=== PATIENT | female | born 1980 | race Caucasian/White ===

== ENCOUNTER 2017-04-05 19:16 | Inpatient (IN) | payer BC ==
[2017-04-05] MEDS ORDERED: ceFAZolin 2 GM in SODIUM CHLORIDE 0.9% 100 ML IVPB ONE (19:54)
[2017-04-05] MEDS ORDERED: CITRIC ACID-SODIUM CITRATE 15 ML CUP PO ONE (19:54)
[2017-04-05] MEDS ORDERED: LACTATED RINGERS 1,000 ML IV ONE (19:54)
--- NOTE | 2017-04-05 20:02 | P.HPOB ---
History of Present Illness H&P Date: 04/05/17 Chief Complaint: 39-5/7 weeks, previous section, labor The patient is a 36-year-old 2 para 1001 admitted at 39-5/7 weeks as established by last menstrual period and confirmed by 20 week ultrasound. She is admitted in early active labor with her cervix dilated to 5 cm. She has a history of previous section and has requested repeat section. She did fall into the category of advanced maternal age and declined genetic testing. Her has otherwise been uncomplicated and group B strep status is negative. Obstetrical history 2 para 1001 with 1 term section. Current statistics are listed in history of present illness. EDC of 2016 was established by last menstrual period and confirmed by 20 week ultrasound. Laboratory workup demonstrates a blood type of O+ with a negative antibody screen. Rubella status is nonimmune. All other laboratory workup was within normal limits. Early Glucola as well as second trimester Glucola were within normal limits. Group B strep status is negative. Gynecologic history is unremarkable with no history of any infections to include STDs. Review of Systems View of systems is confined to history of present illness. Past Medical History Past Medical History: No Reported History Additional Past Medical History / Comment(s): 1998 leep procedure done. History of Any Multi-Drug Resistant Organisms: None Reported Past Surgical History: No Surgical Hx Reported Past Psychological History: No Psychological Hx Reported Smoking Status: Never smoker Past Alcohol Use History: None Reported Past Drug Use History: None Reported - Past Family History Sister(s) Family Medical History: No Reported History Medications and Allergies Home Medications Medication Instructions Recorded Confirmed Type Vit No.124/Iron/FA 1 each PO DAILY 05/20/15 04/05/17 History [ Vitamin Tablet] Allergies Allergy/AdvReac Type Severity Reaction Status Date / Time No Known Allergies Allergy Verified 04/05/17 19:56 Exam - Vital Signs Vital signs: Intake and Output 04/05/17 04/05/17 04/05/17 06:59 14:59 22:59 Other: Weight 93.44 kg Patient Weight 04/06/17 06:59 Weight 93.44 kg In general, this is a well-developed, well-nourished white female in no significant distress. Her heart has a regular rhythm and rate without murmur. Her lungs are clear to auscultation bilaterally in all naqvi. Her abdomen is gravid, nondistended, has normal active bowel sounds, is soft, nontender, and without any palpable masses aside from uterine fundus. Her extremities are without any cyanosis, clubbing, or significant edema and are nontender to palpation bilaterally. Digital cervical examination performed by the nursing staff demonstrates her cervix to be 5 cm dilated. Assessment and Plan (1) Previous section Status: Acute (2) Advanced maternal age (AMA) in Status: Acute (3) Active labor at term Status: Acute Plan: She is admitted for active management of labor. As she has requested repeat section, she will be taken to the operating room shortly for the procedure to be carried out. Risks and complications have been discussed and she has understood and agreed to proceed.
[2017-04-05 20:12] VITALS: BMI 37.6
[2017-04-05 20:23] LABS: Basophils # (A) 0.1 k/uL (0-0.2); Basophils % (A) 1 %; CHCM 36.1; Eosinophils # (A) 0.1 k/uL (0-0.7); Eosinophils % (A) 1 %; HCT 40.3 % (34.0-46.0); HDW 3.19; HGB 13.9 gm/dL (11.4-16.0); Luc # (Auto) 0.42; Luc % (Auto) 4; Lymphocytes # (A) 1.5 k/uL (1.0-4.8); Lymphocytes % (A) 15 %; MCH 31.8 pg (25.0-35.0); MCHC 34.5 g/dL (31.0-37.0); MCV 92.1 fL (80.0-100.0); Mean Platelet Volume 9.4; Monocytes # (A) 0.5 k/uL (0-1.0); Monocytes % (A) 5 %; Neutrophils # (A) 7.2 k/uL (1.3-7.7); Neutrophils % (A) 75 %; RBC 4.37 m/uL (3.80-5.40); RDW 14.3 % (11.5-15.5); WBC 9.6 k/uL (3.8-10.6); WBC (Perox) 10.06
[2017-04-05] MEDS ORDERED: KETOROLAC 30 MG/ML 1 ML VIAL ONE (20:35)
[2017-04-05] MEDS ORDERED: MORPHINE SULFATE (PF) 0.3 MG/0.3 ML SYR ONE (20:35)
[2017-04-05] MEDS ORDERED: NALBUPHINE 10 MG/ML AMPUL ONE (20:35)
[2017-04-05] MEDS ORDERED: ceFAZolin 1,000 MG VIAL ONE (20:35)
[2017-04-05] MEDS ORDERED: OXYTOCIN 10 UNIT/ML 1 ML VIAL ONE (20:35)
[2017-04-05] MEDS ORDERED: fentaNYL (PF) 50 MCG/ML 2 ML AMP ONE (20:35)
[2017-04-05] MEDS ORDERED: ONDANSETRON 4 MG/2 ML VIAL ONE (20:35)
[2017-04-05] MEDS ORDERED: ZOLPIDEM 5 MG TAB PO PRN (21:26)
[2017-04-05] MEDS ORDERED: diphenhydrAMINE 50 MG CAP PO PRN (21:26)
[2017-04-05] MEDS ORDERED: NALOXONE 0.4 MG/ML 1 ML VIAL IV PRN ×2 (21:26→22:37)
[2017-04-05] MEDS ORDERED: KETOROLAC 30 MG/ML 1 ML VIAL IVP PRN (21:26)
[2017-04-05] MEDS ORDERED: MEASLES-MUMPS-RUBELLA VACC/PF 12,500 UNIT/0.5 ML VIAL SQ ONE (21:26)
[2017-04-05] MEDS ORDERED: ACETAMINOPHEN TAB 325 MG TAB PO PRN (21:26)
[2017-04-05] MEDS ORDERED: diphenhydrAMINE 50 MG/ML 1 ML VIAL IVP PRN ×3 (21:26→22:37)
[2017-04-05] MEDS ORDERED: LANOLIN CREAM 5 GM TUBE TOPICAL PRN (21:26)
[2017-04-05] MEDS ORDERED: ONDANSETRON 4 MG/2 ML VIAL IVP PRN ×2 (21:26→22:37)
[2017-04-05] MEDS ORDERED: METOCLOPRAMIDE 5 MG/ML 2 ML VIAL IVP PRN (21:26)
[2017-04-05] MEDS ORDERED: SIMETHICONE 80 MG CHEWABLE PO PRN (21:26)
[2017-04-05] MEDS ORDERED: diphenhydrAMINE 25 MG CAP PO PRN (21:26)
[2017-04-05] MEDS ORDERED: Acetaminophen-Codeine 300-30mg TAB PO PRN ×2 (21:26)
[2017-04-05] MEDS ORDERED: OXYTOCIN 20 UNITS/1000 ML NS 1,000 ML IV SCH (21:30)
--- NOTE | 2017-04-05 21:35 | P.OP ---
Date of Procedure: 04/05/17 Preoperative Diagnosis: #1. 39-5/7 weeks intrauterine , labor #2. Previous section # 3. Advanced maternal age Postoperative Diagnosis: Same Procedure(s) Performed: #1. Repeat low transverse section Anesthesia: spinal Surgeon: Scott Bean Manager House #1: Nelson Pruitt Estimated Blood Loss (ml): 600 IV fluids (ml): 1,500 Urine output (ml): 300 Pathology: other (Placenta) Condition: stable Disposition: floor Operative Findings: The patient presented to labor and delivery in active labor having had a previous section and was requesting repeat low transverse section. She was therefore taken the operating room where she was delivered of a viable 7 lbs. 13 oz. baby boy with Apgars of 8 at 1 minute and 9 at 5 minutes delivered in the occiput anterior position. There was a loose nuchal cord 1 reduced prior to delivery of the but after delivery of the head. The placenta was delivered manually, intact, and grossly normal with a grossly normal three-vessel cord. The uterus, tubes, and ovaries were entirely normal to inspection. The lower uterine segment was noted to have been very thin at the time of the uterine incision and with closure. Description of Procedure: The patient was prepped and draped in usual fashion after spinal anesthesia was administered by the anesthesiologist. A Pfannenstiel incision was made through pre-existing scar and extended into the abdominal cavity with minimal difficulty. Opening of the fascia immediately entered the abdominal cavity with no apparent peritoneum and the muscles were split in the midline prior to entry as well. The bladder blade was placed and the bladder noted to be distal to the site of the intended incision. As result, the uterus was opened in the transverse plane for approximately 2 cm at which time clear fluid was noted. The incision was extended in each direction using the bandage scissors. The head was delivered up and through the incision where the nose and mouth were thoroughly suctioned. The nuchal cord was reduced. Remainder of the infant was delivered onto the field where the cord was doubly clamped, cut, and the passed for resuscitative measures with weight and Apgars as noted above. A segment of cord was then doubly clamped, cut, and set aside should cord gases become necessary. The placenta was delivered manually and intact as noted above. The uterus was exteriorized and the interior cavity of the uterus swept of any remaining placental or membranous fragments. The margins of the incision were grasped with Singer clamps and the incision closed in 2 layers. The first layer was a running locking stitch of 0 chromic catgut followed by a running imbricating layer of 0 chromic catgut from margin to margin. Hemostasis appeared to be excellent. The posterior cul-de-sac was suctioned using a guard and the uterine and ovarian findings were normal as noted above. The uterus was replaced within the abdominal cavity and the gutters swept of any remaining blood, fluid, or clot. The incision was reexamined and found to be hemostatic. As the muscles were gaping to some extent, they were loosely reapproximated with a [id number] stitch of 0 chromic catgut incorporating the parietal peritoneum as well. The fascia was closed with 2 running stitches of 0 Vicryl proceeding from the lateral margins to the midpoint. Subcutaneous tissues were irrigated, made hemostatic with the Bovie, and reapproximated with a running stitch of 30 plain catgut. The skin was reapproximated with a running subcuticular stitch of 4-0 Vicryl from margin to margin. This was followed by half-inch Steri-Strips placed with Mastisol. Estimated blood loss for the case was approximate 600 mL. There were no complications. All sponge, instrument, and needle counts were correct. The patient tolerated the procedure well and proceeded to the recovery room in stable condition. Both mother and infant are resting comfortably in recovery.
[2017-04-05] MEDS ORDERED: MORPHINE SULFATE 4 MG/ML SYRINGE IVP PRN (22:37)
[2017-04-05] MEDS: LACTATED RINGERS 1,000 ML IV SCH ×2 (23:07→23:08)
[2017-04-06] MEDS: LACTATED RINGERS 1,000 ML IV SCH ×4 (02:20→12:05)
--- NOTE | 2017-04-06 06:34 | P.PNOBGPC ---
Subjective - Subjective Patient reports: Reports appetite normal, Reports voiding normally, Reports pain well controlled, Reports ambulating normally : doing well Objective - Vital Signs Latest vital signs: Vital Signs Temp Pulse Resp BP Pulse Ox 04/06/17 06:00 14 04/06/17 04:00 97.8 F 67 14 99/53 98 04/06/17 02:00 14 04/05/17 23:46 98 04/05/17 23:25 98.3 F 75 16 97/56 04/05/17 23:03 96 04/05/17 22:55 72 16 103/51 04/05/17 22:25 62 16 97/52 98 04/05/17 22:10 57 L 16 97/53 04/05/17 21:56 65 16 96/52 04/05/17 21:43 65 16 96/52 04/05/17 21:26 96.8 F L 76 16 92/51 04/05/17 19:35 96.8 F L 77 16 122/57 Intake and Output 04/05/17 04/05/17 04/06/17 14:59 22:59 06:59 Output Total 300 Balance -300 Output: Urine 300 Uretheral (Marcus) 200 Other: Weight 93.44 kg Patient Weight 04/06/17 06:59 Weight 93.44 kg - Exam Lungs: bilateral: normal Chest: Normal S1, Normal S2 Extremities: Present: normal Abdomen: Present: normal appearance, soft. Absent: distention, tenderness Incision: Present: normal, dry, intact Uterus: Present: normal, firm (The uterine fundus is tonic and nontender just below the umbilicus.) - Labs Labs: Abnormal Lab Results - Last 24 Hours (Table) 04/05/17 Range/Units 20:00 Plt Count 116 L (150-450) k/uL Assessment and Plan (1) Previous section Current Visit: Yes Status: Acute Code(s): Z98.891 - HISTORY OF UTERINE SCAR FROM PREVIOUS SURGERY SNOMED Code(s): 398084038 (2) Advanced maternal age (AMA) in Current Visit: Yes Status: Acute Code(s): ACP1094 - SNOMED Code(s): 950469349 (3) Active labor at term Current Visit: No Status: Acute Code(s): EUO1820 - SNOMED Code(s): 12832052 (4) S/P section Narrative/Plan: Continue routine postoperative care. The is being watched closely for difficulty with temperature maintenance. As result, I will not circumcise him this morning. Her diet will be advanced this morning to regular which she should cautiously attempt. I have encouraged her to ambulate in the halls at least 4 times daily or more. She is a candidate for possible discharge home tomorrow morning pending no setbacks or complications. Current Visit: Yes Status: Acute Code(s): Z98.89 - OTHER SPECIFIED POSTPROCEDURAL STATES * DO NOT USE * SNOMED Code(s): 841556513
[2017-04-06] MEDS: SENNOSIDES-DOCUSATE SODIUM 1 EACH TAB PO SCH ×2 (08:17→21:39)
--- NOTE | 2017-04-06 09:12 | P.PN ---
Progress Note - Text Date: 04/06/2017 Time: 701 The patient is status post section Vital signs stable VAS: 0-10 Patient has no complaints of pain. The patient incurred some minimal itching yesterday, this itching is now subsiding. Pain meds to be managed by service.
[2017-04-06 09:15] LABS: Basophils % (A) 0 %; CHCM 35.9; Eosinophils % (A) 0 %; HCT 33.6 % (34.0-46.0); HDW 3.13; HGB 11.8 gm/dL (11.4-16.0); Luc # (Auto) 0.26; Luc % (Auto) 3; Lymphocytes # (A) 1.1 k/uL (1.0-4.8); Lymphocytes % (A) 11 %; MCH 32.6 pg (25.0-35.0); MCHC 35.2 g/dL (31.0-37.0); MCV 92.8 fL (80.0-100.0); Mean Platelet Volume 10.2; Monocytes # (A) 0.4 k/uL (0-1.0); Monocytes % (A) 4 %; Neutrophils % (A) 81 %; RBC 3.63 m/uL (3.80-5.40); RDW 14.2 % (11.5-15.5); WBC 9.8 k/uL (3.8-10.6); WBC (Perox) 9.84
[2017-04-06 16:30] VITALS: RESP 18
[2017-04-06] MEDS: IBUPROFEN 600 MG TAB PO PRN (21:39)
[2017-04-07] MEDS: LACTATED RINGERS 1,000 ML IV SCH ×5 (07:27→13:48)
--- NOTE | 2017-04-07 09:03 | P.DS ---
Providers Date of admission: 04/05/17 20:06 Expected date of discharge: 04/07/17 Attending physician: Scott Bean Primary care physician: Scott Bean - Discharge Diagnosis(es) (1) Previous section Current Visit: Yes Status: Acute (2) Advanced maternal age (AMA) in Current Visit: Yes Status: Acute (3) Active labor at term Current Visit: No Status: Acute (4) S/P section Current Visit: Yes Status: Acute Hospital Course: The patient is a 36-year-old 2 para 1001 admitted at 39-5/7 weeks by good dating parameters. She is admitted in early active labor with all signs reassuring and a history of previous section requesting repeat. She was therefore taken the operating room where she was delivered of a viable 7 lbs. 13 oz. baby boy with Apgars of 8 at 1 minute and 9 at 5 minutes. Her course and postoperative course was entirely unremarkable with vital signs remaining stable and her temperature was afebrile throughout. She was tolerating regular diet by the morning of postoperative day #1 and deemed stable for discharge by postoperative day #2. She was discharged home to follow -up in the office in 2 weeks for an incision check and 6 weeks routinely. Discharge instructions included calling for any significantly increased bleeding or foul-smelling lochia, significantly increased fever abdominal pain, perineal complaints, breast complaints, incisional complaints, or anything else that concerned her. She was additionally instructed to have nothing in the vagina for at least 6 weeks time to include intercourse and to abstain from any heavy lifting over the same period of time. She was lastly instructed to do no driving until off all pain medications or 2 weeks' time, whichever came first. Discharge medications included continued vitamins as she has opted to breast-feed. She was additionally provided a prescription for Tylenol 3, 1-2 by mouth every 6 hours when necessary pain, #30 dispensed with no refills. She was otherwise to use [id number] analgesic pain medications as necessary. Maternal blood type is O+ and rubella status is nonimmune. She therefore was to receive the MMR prior to discharge. Discharge hemoglobin and hematocrit were 11.8 and 33.6 respectively. Procedures: #1. Repeat low transverse section Patient Condition at Discharge: Stable Plan - Discharge Summary New Discharge Prescriptions: Acetaminophen-Codeine 300-30mg [Tylenol #3] 2 tab PO Q6H PRN #30 tablet PRN Reason: Pain Discharge Medication List Vit No.124/Iron/FA [ Vitamin Tablet] 1 each PO DAILY 05/20/15 [ History] Acetaminophen-Codeine 300-30mg [Tylenol #3] 2 tab PO Q6H PRN #30 tablet [Rx] Follow up Appointment(s)/Referral(s): Scott Bean MD [Primary Care Provider] - 2 Weeks Discharge Disposition: HOME SELF-CARE
[2017-04-07] MEDS: SENNOSIDES-DOCUSATE SODIUM 1 EACH TAB PO SCH (10:24)
[2017-04-07] MEDS: IBUPROFEN 600 MG TAB PO PRN (10:25)
[2017-04-07 10:50] VITALS: BP 106/62; PULSE 62; TEMP 98.5
== END 2017-04-07 13:30 | disposition home or self-care (01) | DRG 766 ==
LOC: FBPOP 19:16 → 4FBP 20:06
PROVIDERS: ADMIT Obstetrics & Gynecology; ATTEND Obstetrics & Gynecology
PROC: 10D00Z1 Extraction of Products of Conception, Low, Open Approach (ICD-10-PCS; principal; 2017-04-05 20:30)
DX: O34.211 Maternal care for low transverse scar from previous cesarean delivery (principal); O69.81X0 Labor and delivery complicated by cord around neck, without compression, not applicable or unspecified; Z37.0 Single live birth; Z3A.39 39 weeks gestation of pregnancy
CPT/HCPCS: 59025; 85025; 86850; 86900; 86901; 88307; 99213

== ENCOUNTER 2019-03-20 12:42 | Emergency (ER) | payer BC ==
[2019-03-20 12:51] VITALS: TEMP 98.1
[2019-03-20] MEDS ORDERED: SODIUM CHLORIDE 0.9% 1,000 ML IV STA ×2 (13:43)
--- NOTE | 2019-03-20 13:52 | ED ---
Syncope HPI - General Chief Complaint: Dizziness Stated Complaint: Dizziness Time Seen by Provider: 03/20/19 12:58 Source: patient, RN notes reviewed, old records reviewed Mode of arrival: wheelchair Limitations: no limitations - History of Present Illness Initial Comments: Patient is a 38-year-old female presents today with complaints of dizziness epis odes at work. Patient reports symptoms started after she ate lunch. [place] only one hour prior to arrival. She is starting to feel dizzy and lightheaded and was sent on the couch. Her coworkers called EMS who brought her here. She denies any history of chest pain during this time. She denies any headaches. Past medical history of high cholesterol and a history of a TBI 2006. Patient states that when this was happening her vision started to become tunnel vision and she felt nauseated. She denies any history of nausea and vomiting or diarrhea or reasons for dehydration prior to this episode of dizziness. - Related Data Previous Rx's Medication Instructions Recorded Meclizine [Antivert] 25 mg PO TID #12 tab 03/20/19 Allergies Allergy/AdvReac Type Severity Reaction Status Date / Time No Known Allergies Allergy Verified 03/20/19 13:38 Review of Systems ROS Statement: Those systems with pertinent positive or pertinent negative responses have been documented in the HPI. ROS Other: All systems not noted in ROS Statement are negative. Past Medical History Past Medical History: No Reported History Additional Past Medical History / Comment(s): tbi - fell off golf cart History of Any Multi-Drug Resistant Organisms: None Reported Past Surgical History: Section Additional Past Surgical History / Comment(s): leep procedure Past Anesthesia/Blood Transfusion Reactions: No Reported Reaction Past Psychological History: No Psychological Hx Reported Smoking Status: Never smoker Past Alcohol Use History: Occasional Past Drug Use History: None Reported - Past Family History Sister(s) Family Medical History: No Reported History General Exam Limitations: no limitations Course Vital Signs 03/20/19 03/20/19 03/20/19 12:45 13:00 13:30 Temperature 98.1 F Pulse Rate 61 67 53 L Pulse Rate [ Left Sitting Pulse Oximetery ] Pulse Rate [ Left Standing Pulse Oximetery ] Pulse Rate [ Left Supine] Respiratory 16 8 L 27 H Rate Blood Pressure 103/70 103/70 103/70 Blood Pressure [Left Arm Sitting] Blood Pressure [Left Arm Standing] Blood Pressure [Left Arm Supine] O2 Sat by Pulse 100 97 Oximetry 03/20/19 03/20/19 03/20/19 14:00 14:30 15:20 Temperature Pulse Rate 49 L 48 L Pulse Rate [ 60 Left Sitting Pulse Oximetery ] Pulse Rate [ 66 Left Standing Pulse Oximetery ] Pulse Rate [ 62 Left Supine] Respiratory 22 20 Rate Blood Pressure 93/58 109/66 Blood Pressure 109/70 [Left Arm Sitting] Blood Pressure 104/73 [Left Arm Standing] Blood Pressure 109/63 [Left Arm Supine] O2 Sat by Pulse 99 99 100 Oximetry EKG Findings - EKG Comments: EKG Findings:: EKG performed at 1254 shows sinus rhythm with marked sinus arrhythmia occasional PVCs otherwise normal EKG noted. Ventricular rate is 72 beats were minute period. Was 144 ms. QS duration 90 ms. QT QTc is 424/464 ms. Medical Decision Making - Lab Data Result diagrams: 03/20/19 14:37 03/20/19 13:24 Lab Results 03/20/19 03/20/19 03/20/19 Range/Units 13:24 13:24 13:24 WBC (3.8-10.6) k/uL RBC (3.80-5.40) m/uL Hgb (11.4-16.0) gm/dL Hct (34.0-46.0) % MCV (80.0-100.0) fL MCH (25.0-35.0) pg MCHC (31.0-37.0) g/dL RDW (11.5-15.5) % Plt Count (150-450) k/uL Neutrophils % % Lymphocytes % % Monocytes % % Eosinophils % % Basophils % % Neutrophils # (1.3-7.7) k/uL Lymphocytes # (1.0-4.8) k/uL Monocytes # (0-1.0) k/uL Eosinophils # (0-0.7) k/uL Basophils # (0-0.2) k/uL Sodium 140 (137-145) mmol/L Potassium 5.8 H (3.5-5.1) mmol/L Chloride 107 (98-107) mmol/L Carbon Dioxide 26 (22-30) mmol/L Anion Gap 7 mmol/L BUN 13 (7-17) mg/dL Creatinine 0.74 (0.52-1.04) mg/dL Est GFR (CKD-EPI)AfAm >90 (>60 ml/min/1.73 sqM) Est GFR (CKD-EPI)NonAf >90 (>60 ml/min/1.73 sqM) Glucose 111 H (74-99) mg/dL Calcium 9.7 (8.4-10.2) mg/dL Magnesium 2.1 (1.6-2.3) mg/dL Total Bilirubin 1.5 H (0.2-1.3) mg/dL AST 38 H (14-36) U/L ALT 22 (9-52) U/L Alkaline Phosphatase 49 (38-126) U/L Troponin I <0.012 (0.000-0.034) ng/mL Total Protein 7.4 (6.3-8.2) g/dL Albumin 4.7 (3.5-5.0) g/dL Urine Color Light Yellow Urine Appearance Cloudy H (Clear) Urine pH 7.0 (5.0-8.0) Ur Specific [place] 1.003 (1.001-1.035) Urine Protein Negative (Negative) Urine Glucose (UA) Negative (Negative) Urine Ketones Negative (Negative) Urine Blood Negative (Negative) Urine Nitrite Negative (Negative) Urine Bilirubin Negative (Negative) Urine Urobilinogen <2.0 (<2.0) mg/dL Ur Leukocyte Esterase Negative (Negative) Urine RBC 1 (0-5) /hpf Urine WBC <1 (0-5) /hpf Ur Squamous Epith Cells 4 (0-4) /hpf Urine Mucus Rare H (None) /hpf 03/20/19 Range/Units 14:37 WBC 6.7 (3.8-10.6) k/uL RBC 4.24 (3.80-5.40) m/uL Hgb 13.0 (11.4-16.0) gm/dL Hct 38.4 (34.0-46.0) % MCV 90.6 (80.0-100.0) fL MCH 30.7 (25.0-35.0) pg MCHC 33.9 (31.0-37.0) g/dL RDW 13.2 (11.5-15.5) % Plt Count 165 (150-450) k/uL Neutrophils % 66 % Lymphocytes % 24 % Monocytes % 5 % Eosinophils % 2 % Basophils % 1 % Neutrophils # 4.4 (1.3-7.7) k/uL Lymphocytes # 1.6 (1.0-4.8) k/uL Monocytes # 0.4 (0-1.0) k/uL Eosinophils # 0.1 (0-0.7) k/uL Basophils # 0.1 (0-0.2) k/uL Sodium (137-145) mmol/L Potassium (3.5-5.1) mmol/L Chloride (98-107) mmol/L Carbon Dioxide (22-30) mmol/L Anion Gap mmol/L BUN (7-17) mg/dL Creatinine (0.52-1.04) mg/dL Est GFR (CKD-EPI)AfAm (>60 ml/min/1.73 sqM) Est GFR (CKD-EPI)NonAf (>60 ml/min/1.73 sqM) Glucose (74-99) mg/dL Calcium (8.4-10.2) mg/dL Magnesium (1.6-2.3) mg/dL Total Bilirubin (0.2-1.3) mg/dL AST (14-36) U/L ALT (9-52) U/L Alkaline Phosphatase (38-126) U/L Troponin I (0.000-0.034) ng/mL Total Protein (6.3-8.2) g/dL Albumin (3.5-5.0) g/dL Urine Color Urine Appearance (Clear) Urine pH (5.0-8.0) Ur Specific [place] (1.001-1.035) Urine Protein (Negative) Urine Glucose (UA) (Negative) Urine Ketones (Negative) Urine Blood (Negative) Urine Nitrite (Negative) Urine Bilirubin (Negative) Urine Urobilinogen (<2.0) mg/dL Ur Leukocyte Esterase (Negative) Urine RBC (0-5) /hpf Urine WBC (0-5) /hpf Ur Squamous Epith Cells (0-4) /hpf Urine Mucus (None) /hpf Disposition Clinical Impression: Dizziness Disposition: HOME SELF-CARE Condition: Good Instructions (If sedation given, give patient instructions): Dizziness (ED) Additional Instructions: Patient has a follow-up with primary care doctor for possible further testing and wearing a Holter monitor. Patient should return to the emergency department if any alarming signs or symptoms occur. Prescriptions: Meclizine [Antivert] 25 mg PO TID #12 tab Is patient prescribed a controlled substance at d/c from ED?: No Referrals: Jourdan Brooks DO [Primary Care Provider] - 1-2 days Time of Disposition: 17:17
[2019-03-20 13:56] LABS: Appearance,Urine Cloudy (Clear); Bilirubin,Urine Negative (Negative); Blood,Urine Negative (Negative); Color,Urine Light Yellow; Glucose,Urine (UA) Negative (Negative); Ketones,Urine Negative (Negative); Leukocyte Esterase,Urine Negative (Negative); Mucus,Urine Rare /hpf; Nitrite,Urine Negative (Negative); Protein,Urine Negative (Negative); RBC,Urine 1 /hpf (0-5); Specific Gravity,Urine 1.003 (1.001-1.035); Squamous Epithelial Cell,Urine 4 /hpf (0-4); Urobilinogen,Urine <2.0 mg/dL (<2.0); WBC,Urine <1 /hpf (0-5)
[2019-03-20 14:07] LABS: ALT 22 U/L (9-52); AST 38 U/L (14-36); Albumin 4.7 g/dL (3.5-5.0); Alkaline Phosphatase 49 U/L (38-126); Anion Gap 7 mmol/L; Blood Urea Nitrogen 13 mg/dL (7-17); Calcium 9.7 mg/dL (8.4-10.2); Carbon Dioxide 26 mmol/L (22-30); Chloride 107 mmol/L (98-107); Glucose 111 mg/dL (74-99); Magnesium 2.1 mg/dL (1.6-2.3); Sodium 140 mmol/L (137-145); Total Bilirubin 1.5 mg/dL (0.2-1.3); Total Protein 7.4 g/dL (6.3-8.2)
[2019-03-20 14:08] LABS: Potassium 5.8 mmol/L (3.5-5.1)
--- NOTE | 2019-03-20 14:11 | XR ---
EXAMINATION TYPE: XR chest 2V DATE OF EXAM: 03/20/2019 COMPARISON: NONE HISTORY: Dizziness and nausea TECHNIQUE: Frontal and lateral views of the chest are obtained. FINDINGS: There is no focal air space opacity, pleural effusion, or pneumothorax seen. The cardiac silhouette size is within normal limits. The osseous structures are intact. There are overlying car diac leads. IMPRESSION: No acute cardiopulmonary process.
[2019-03-20 14:47] LABS: Basophils # (A) 0.1 k/uL (0-0.2); Basophils % (A) 1 %; Eosinophils # (A) 0.1 k/uL (0-0.7); Eosinophils % (A) 2 %; HCT 38.4 % (34.0-46.0); Lymphocytes # (A) 1.6 k/uL (1.0-4.8); Lymphocytes % (A) 24 %; MCH 30.7 pg (25.0-35.0); MCHC 33.9 g/dL (31.0-37.0); MCV 90.6 fL (80.0-100.0); Mean Platelet Volume 8.8; Monocytes # (A) 0.4 k/uL (0-1.0); Monocytes % (A) 5 %; Neutrophils # (A) 4.4 k/uL (1.3-7.7); Neutrophils % (A) 66 %; Platelet Count 165 k/uL (150-450); RBC 4.24 m/uL (3.80-5.40); RDW 13.2 % (11.5-15.5); WBC 6.7 k/uL (3.8-10.6)
[2019-03-20] MEDS ORDERED: MECLIZINE 12.5 MG TAB PO STA (15:45)
[2019-03-20 17:39] VITALS: BP 112/60; PULSE 63; RESP 14
== END 2019-03-20 17:39 | disposition home or self-care (01) ==
LOC: EC 12:42
DX: R42 Dizziness and giddiness (principal); R11.0 Nausea; Z87.820 Personal history of traumatic brain injury; Z98.890 Other specified postprocedural states
CPT/HCPCS: 36415; 71046; 80053; 81001; 83735; 84484; 85025; 93005; 96360; 96361; 99284

== ENCOUNTER → 2019-04-11 | Outpatient (CLI) | payer BC | END | disposition home or self-care (01) | LOC: RADECHMAIN 11:44 | PROVIDERS: ATTEND Family Medicine | DX: I49.3 Ventricular premature depolarization (principal); R55 Syncope and collapse; R00.8 Other abnormalities of heart beat | CPT/HCPCS: 93225; 93226 ==

== ENCOUNTER → 2020-06-20 | Outpatient (CLI) | payer BC ==
--- NOTE | 2020-06-20 13:51 | XR ---
EXAMINATION TYPE: XR knee complete LT DATE OF EXAM: 06/20/2020 CLINICAL HISTORY: Left knee pain after running injury. TECHNIQUE: Three views of the left knee are obtained. COMPARISON: None. FINDINGS: There is no acute fracture/dislocation evident in left knee. Mild tricompartmental joint s pace loss. No significant spurring. The overlying soft tissue appears unremarkable. IMPRESSION: As above.
== END | disposition home or self-care (01) ==
LOC: RADXRMAIN 13:28
PROVIDERS: ATTEND Family Medicine
DX: M25.562 Pain in left knee (principal)

== ENCOUNTER → 2020-06-22 | Outpatient (CLI) | payer BC ==
--- NOTE | 2020-06-23 11:58 | MR ---
EXAMINATION TYPE: MR knee LT wo con DATE OF EXAM: 06/22/2020 COMPARISON: X-ray 06/20/2020 HISTORY: Left knee pain TECHNIQUE: Multiplanar, multisequence imaging of the left knee is performed without IV contrast. FINDINGS: MEDIAL MENISCUS: There is a complex tear involving the posterior horn of the medial meniscus. LATERAL MENISCUS: Anterior and posterior horns are intact without tear. CRUCIATE LIGAMENTS: The anterior and posterior cruciate ligaments are intact and unremarkable. COLLATERAL LIGAMENTS: The medial collateral ligament and lateral collateral ligament complex are inta ct and unremarkable. EXTENSOR MECHANISM: Visualized quadriceps and patellar tendons are intact. EFFUSION: There is a small amount of fluid in the suprapatellar bursa as well as within the joint sp danyelle of the knee. POPLITEAL CYST: No popliteal/blanco cyst. TRICOMPARTMENT SPACES: Mild narrowing of the medial compartment. No erosive changes. Mild narrowing o f patellofemoral joint. CARTILAGE: Grade II chondromalacia of the patellar cartilage. Articular femoral and tibial cartilage appears preserved BONE MARROW SIGNAL: No focal abnormal marrow signal is appreciated. IMPRESSION: 1. Complex tear posterior horn medial meniscus. 2. Mild arthropathy and small joint effusions with no evidence of ligamentous tear.
== END | disposition home or self-care (01) ==
LOC: RADMRIMAIN 11:36
PROVIDERS: ATTEND Orthopaedic Surgery
DX: S83.242A Other tear of medial meniscus, current injury, left knee, initial encounter (principal); M12.862 Other specific arthropathies, not elsewhere classified, left knee; M25.462 Effusion, left knee

== ENCOUNTER → 2020-07-04 | Outpatient (CLI) | payer BC ==
[2020-07-04 10:56] LABS: Basophils # (A) 0.1 k/uL (0-0.2); Basophils % (A) 2 %; Eosinophils # (A) 0.1 k/uL (0-0.7); Eosinophils % (A) 1 %; HCT 44.4 % (34.0-46.0); Lymphocytes # (A) 1.9 k/uL (1.0-4.8); Lymphocytes % (A) 34 %; MCH 29.5 pg (25.0-35.0); MCHC 31.5 g/dL (31.0-37.0); MCV 93.6 fL (80.0-100.0); Monocytes # (A) 0.3 k/uL (0-1.0); Monocytes % (A) 5 %; Neutrophils % (A) 55 %; Platelet Count 158 k/uL (150-450); RBC 4.75 m/uL (3.80-5.40); RDW 12.8 % (11.5-15.5); WBC 5.5 k/uL (3.8-10.6)
[2020-07-04 11:08] LABS: Potassium 4.5 mmol/L (3.5-5.1)
== END | disposition home or self-care (01) ==
LOC: LABPAT 09:41
PROVIDERS: ATTEND Orthopaedic Surgery
DX: Z01.818 Encounter for other preprocedural examination (principal); M23.92 Unspecified internal derangement of left knee
CPT/HCPCS: 80051; 85025

== ENCOUNTER 2020-07-17 10:22 | Day surgery (SDC) | payer BC ==
[2020-07-12 14:23] VITALS: BMI 29.2
--- NOTE | 2020-07-16 18:35 | HP ---
HISTORY AND PHYSICAL DATE OF SURGERY: 07/17/2020 Chetna Ward is a 40-year-old patient seen with progressive left knee pain. We discussed options for treatment. She elected to proceed with arthroscopy. Consent was obtained. PAST MEDICAL HISTORY: Noncontributory. PAST SURGICAL HISTORY: section. DAILY MEDICATIONS: Ibuprofen. ALLERGIES: NONE. SOCIAL HISTORY: She denies tobacco use. PHYSICAL EVALUATION OF LEFT KNEE: Range of motion is -7/8 to 115. Mild effusion. Tenderness medial joint line. Positive medial Deidre's. Ligaments stable. Hip rotation without pain. Distal neurovascular exam is intact. RADIOGRAPHS: Radiographs of the left knee reveal mild osteoarthritis. Left knee MRI revealed a complex medial meniscal tear. IMPRESSION: Internal derangement of the left knee with medial meniscal tear. PLAN: Left knee arthroscopy with partial meniscectomy, partial synovectomy and debridement. MMODL / IJN: [id number] /
[~2020-07-17 10:22] MED LIST: HYDROmorphone 0.5 MG/0.5 ML SYRINGE IVP PRN; LACTATED RINGERS 1,000 ML IV SCH
[2020-07-17] MEDS ORDERED: SCOPOLAMINE 1.5MG/72HR PATCH TRANSDERM ONE (11:20)
[2020-07-17] MEDS ORDERED: DEXAMETHASONE SOD PHOSPHATE 10 MG/ML 1 ML VIAL IV ONE (11:20)
[2020-07-17] MEDS ORDERED: ONDANSETRON 4 MG/2 ML VIAL IVP ONE (11:20)
[2020-07-17] MEDS ORDERED: LIDOCAINE 1% (10MG/ML) FOR IV START INTRADERMA ONE (11:20)
[2020-07-17] MEDS ORDERED: ONDANSETRON 4 MG/2 ML VIAL ONE (11:21)
[2020-07-17] MEDS ORDERED: BUPIVACAINE (PF) 0.25% 30 ML VIAL SQ ONE ×2 (11:38→12:13)
[2020-07-17] MEDS ORDERED: LIDOCAINE 1% INJ 10MG/ML (20 ML MDV) ONE (11:43)
[2020-07-17] MEDS ORDERED: PROPOFOL 10 MG/ML 20 ML VIAL IV ONE (11:43)
[2020-07-17] MEDS ORDERED: MIDAZOLAM 2 MG/2 ML VIAL ONE (11:43)
[2020-07-17] MEDS ORDERED: fentaNYL (PF) 50 MCG/ML 2 ML AMP ONE (11:43)
[2020-07-17] MEDS ORDERED: SUCCINYLCHOLINE CHLORIDE 100 MG/5 ML SYR IV ONE (11:43)
--- NOTE | 2020-07-17 12:30 | P.OP ---
Date of Procedure: 07/17/20 Preoperative Diagnosis: Internal derangement left knee Postoperative Diagnosis: 1. Tear medial meniscus left knee 2. Reactive synovitis medial, lateral and suprapatellar compartments left knee Procedure(s) Performed: 1. Arthroscopic partial medial meniscectomy left knee 2. Arthroscopic partial synovectomy medial, lateral and suprapatellar compartments left knee Anesthesia: [place], local Surgeon: Valerio Dunn Estimated Blood Loss (ml): 7 Pathology: none sent Condition: stable Disposition: PACU Indications for Procedure: 40-year-old patient seen with progressive left knee pain. After having treatment options discussed, she elected to proceed with arthroscopy. Operative Findings: See description of procedure Description of Procedure: Patient was taken to the operative suite. Patient underwent a general anesthe tic by the department of anesthesia. Patient was given preoperative antibiotics. The left lower extremity was placed in a well-padded arthroscopic leg hernandez. The left leg was prepped and draped in the normal sterile orthopedic fashion. A lateral parapatellar and suprapatellar incision was made. Trochars were inserted. Arthroscopy was initiated. Suprapatellar pouch revealed diffuse thick reactive synovitis. The patellofemoral joint appeared to articulate congruently. There was no significant chondromalacia present. The scope was guided into the medial gutter. No loose bodies or plica were identified. The scope was then guided into the medial compartment. A medial parapatellar incision was made. Trocar inserted followed by probe. There was a complex tear involving the posterior horn medial meniscus. There was no significant chondromalacia. There was thick reactive synovitis anteriorly. I performed a partial medial meniscectomy getting down to stable meniscal tissue. I performed a partial synovectomy decompressing the reactive synovitis. The residual meniscus was now probed and found to be stable. There was good decompression of synovitis. Scope and probe were then guided into the intercondylar notch. Cruciates were identified, probed and found to be stable. The scope and probe were then guided into lateral compartment. Lateral meniscus was probed and found to be stable. There was no superior chondromalacia. There was some thick reactive synovitis anteriorly. I performed a partial synovectomy decompressing reactive synovitis. The shaver was removed. There was good decompression of the synovitis. The scope was in guided back into the suprapatellar compartment. I introduced a motorized shaver into the super patellar compartment. I debrided some piecemeal fragments of meniscus I encountered. I performed a partial synovectomy decompressing reactive synovitis. The shaver was removed. There was good decompression of the synovitis. I took one more look on the entire knee, no residual debris. Instruments were now removed from the joint. The joint was infiltrated with .25% Marcaine. Steri-Strips were applied to the portal sites. Sterile dressings were applied. The patient was placed into a NATALIA hose. No tourniquet was utilized. The patient was awakened, transferred to a bed and taken to recovery stable satisfactory condition.
[2020-07-17 12:31] VITALS: TEMP 96.8
[2020-07-17] MEDS ORDERED: KETOROLAC 15 MG/ML 1 ML VIAL IVP ONE (12:32)
[2020-07-17 13:03] VITALS: RESP 18
[2020-07-17 13:21] VITALS: BP 127/43; PULSE 45
== END 2020-07-17 14:18 | disposition home or self-care (01) ==
LOC: OR 10:22
PROVIDERS: ATTEND Orthopaedic Surgery
DX: M23.222 Derangement of posterior horn of medial meniscus due to old tear or injury, left knee (principal); M65.862 Other synovitis and tenosynovitis, left lower leg; Z98.890 Other specified postprocedural states; Z79.1 Long term (current) use of non-steroidal anti-inflammatories (NSAID)
CPT/HCPCS: 81025; 29881; 29876; J2250; J1100; J0690; J2405; J2001; J3010; J1885; J0330; J2704

== ENCOUNTER → 2020-10-01 | Outpatient (CLI) | payer BC ==
--- NOTE | 2020-10-01 13:25 | MM ---
Reason for exam: screening (asymptomatic). Baseline mammogram. History: Patient had first child at age 35. Family history of breast cancer in maternal grandmother, breast cancer in 2 maternal aunts, and breast cancer in maternal cousin at age 40. Physical Findings: Nurse did not find any significant physical abnormalities on exam. MG 3D Screening Mammo W/Cad Bilateral CC and MLO view(s) were taken. The breast tissue is heterogeneously dense. This may lower the sensitivity of mammography. No definite persisting abnormality on 3D but tissues are more dense in the left upper outer quadrant, ultrasound can be performed. These results were verbally communicated with the patient and result sheet given to the patient on 10/01/20. ASSESSMENT: Incomplete: need additional imaging evaluation, BI-RAD 0 RECOMMENDATION: Ultrasound of the left breast. (upper outer quadrant)
--- NOTE | 2020-10-01 13:26 | USB ---
Reason for exam: additional evaluation requested from abnormal screening. History: Patient had first child at age 35. Family history of breast cancer in maternal grandmother, breast cancer in 2 maternal aunts, and breast cancer in maternal cousin at age 40. Physical Findings: Breast exam preformed at baseline screening. US Breast Workup Limited LT Left limited breast ultrasound including focal area of concern, retroareolar and axilla demonstrates no cystic or solid lesion seen. Scanned 12-3 o'clock. These results were verbally communicated with the patient and result sheet given to the patient on 10/01/20. ASSESSMENT: Benign, BI-RAD 2 RECOMMENDATION: Return to routine screening mammogram schedule for both breasts.
== END | disposition home or self-care (01) ==
LOC: RADMAMWWP 10:56
PROVIDERS: ATTEND Family Medicine
DX: Z12.31 Encounter for screening mammogram for malignant neoplasm of breast (principal); R92.8 Other abnormal and inconclusive findings on diagnostic imaging of breast; Z80.3 Family history of malignant neoplasm of breast
CPT/HCPCS: 77063; 77067

== ENCOUNTER 2021-11-05 15:22 | Emergency (ER) | payer BC ==
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
--- NOTE | 2021-11-05 16:46 | CT ---
EXAMINATION TYPE: CT brain cspine wo con DATE OF EXAM: 11/05/2021 COMPARISON: None HISTORY: Head injury CT DLP: 1435.7 mGycm Automated exposure control for dose reduction was used. Ventricles have normal size. There is no mass effect nor midline shift. There is no sign of intracran ial hemorrhage calvarium is intact. There is no evidence of cerebral edema. Skull base is intact. The re is normal aeration of the mastoid sinuses. Cervical vertebra show mild straightening. Disc spaces are fairly normal. Facet joints are intact. Pr evertebral soft tissues are intact. IMPRESSION: Negative CT scan of the brain. Negative CT scan cervical spine.
[2021-11-05 17:23] VITALS: BP 115/75; PULSE 72; RESP 16; TEMP 98.7
== END 2021-11-05 17:23 | disposition home or self-care (01) ==
LOC: EC 15:22
DX: S00.83XA Contusion of other part of head, initial encounter (principal); M54.2 Cervicalgia; Z87.891 Personal history of nicotine dependence; W01.10XA Fall on same level from slipping, tripping and stumbling with subsequent striking against unspecified object, initial encounter
CPT/HCPCS: 70450; 72125; 99284

== ENCOUNTER → 2023-03-12 | Outpatient (CLI) | payer BC ==
--- NOTE | 2023-03-15 07:51 | MM ---
Reason for Exam: Screening (asymptomatic). Last mammogram was performed 1 year(s) and 2 month(s) ago. Patient History: Menarche at age 14. First Full-Term at age 35. Late child-bearing (after 30). Premenopausal. Maternal grandmother had breast cancer, age 55. Maternal cousin had breast cancer, age 40. Maternal aunt had breast cancer, age 40. Maternal aunt had breast cancer. Risk Values: Susana 5 year model risk: 0.8%. NCI Lifetime model risk: 12.2%. Prior Study Comparison: 10/01/2020 Bilateral Screening Mammogram, [facility]. 01/15/2022 Bilateral Screening Mammogram, [facility]. Tissue Density: The breast tissue is heterogeneously dense. This may lower the sensitivity of mammography. Findings: Analyzed By CAD. There is no suspicious group of microcalcifications or new suspicious mass in either breast. Overall Assessment: Negative, BI-RAD 1 Management: Screening Mammogram of both breasts in 1 year. A clinical breast exam by your physician is recommended on an annual basis and results should be correlated with mammographic findings. Electronically signed and approved by: Brenton Bae M.D. Radiologis
== END | disposition home or self-care (01) ==
LOC: RADMAMWWP 13:14
PROVIDERS: ATTEND Family Medicine
DX: Z12.31 Encounter for screening mammogram for malignant neoplasm of breast (principal); Z80.3 Family history of malignant neoplasm of breast
CPT/HCPCS: 77063; 77067

== ENCOUNTER → 2023-12-09 | Outpatient (CLI) | payer BC ==
--- NOTE | 2023-12-13 20:18 | CT ---
EXAMINATION TYPE: CT soft tissue neck w con CT DLP: 509.10 mGycm, Automated exposure control for dose reduction was used. DATE OF EXAM: 12/09/2023 12:15 PM COMPARISON: None. CLINICAL INDICATION:Female, 43 years old with history of R22.1 LOCALIZED SWELLING, MASS AND LUMP, NEC K; PHH, left sided neck mass. hx of parotid mass removed TECHNIQUE: Standard enhanced CT of the neck. Axial sections with coronal and sagittal reformats were obtained. Contrast used:100 mL of Isovue 300 with IV Contrast, Oral contrast used: none. FINDINGS: Brain: Visualized portions are grossly unremarkable. Orbits: Unremarkable Sinuses: Grossly unremarkable. Spaces of the neck, nodes: Parapharyngeal fat planes are preserved. Parotids appear symmetric with no definite mass visible. Unremarkable submandibular and thyroid glands. No enlarged nodes are seen thr oughout the neck. Airway: Nasopharynx is patent. Mild nasal septal deviation towards the left noted. There is mild asym metry of the soft tissues on the right posterior to the tongue, right more prominent than left, which could represent inflammation of the palatine tonsil, this could be correlated with direct visualizat ion. Epiglottis appears within normal limits. Minimally prominent appearance of the hypopharyngeal so ft tissues without enhancing mass visualized, may be physiologic. Upper trachea is patent. Vascular structures: Visualized major arteries are patent and unremarkable. Upper chest: Visualized lung apices are clear. MSK: No significant degenerative changes of the cervical spine. Mild reversal of the normal cervical lordosis, can be seen with pain, positioning, muscular spasm. No lytic/blastic bony lesion is shown. Other: none. IMPRESSION 1. No discrete evidence of mass or adenopathy in the neck. 2. Possible palatine tonsillitis, especially the right. This can be correlated with direct visual in spection.
== END | disposition home or self-care (01) ==
LOC: RADCTMAIN 11:33
PROVIDERS: ATTEND Family Medicine
DX: R22.1 Localized swelling, mass and lump, neck (principal)
CPT/HCPCS: 70491; Q9967

== ENCOUNTER → 2024-03-21 | Outpatient (CLI) | payer BC ==
--- NOTE | 2024-03-22 21:48 | MM ---
Reason for Exam: Screening (asymptomatic). Last screening mammogram was performed 12 month(s) ago. Patient History: Menarche at age 14. First Full-Term at age 35. Late child-bearing (after 30). Premenopausal. Maternal grandmother had breast cancer, age 55. Maternal cousin had breast cancer, age 40. Maternal aunt had breast cancer, age 40. Maternal aunt had breast cancer. Risk Values: Susana 5 year model risk: 0.9%. NCI Lifetime model risk: 12.1%. Prior Study Comparison: 10/01/2020 Bilateral Screening Mammogram, [facility]. 01/15/2022 Bilateral Screening Mammogram, [facility]. 03/12/2023 Bilateral MG 3D screening mammo w/cad, [facility]. Tissue Density: The breasts are heterogeneously dense, which may obscure small masses. Findings: Analyzed By CAD. Areas of asymmetric density on the left are unchanged. However, nodular asymmetric density inferior subareolar right MLO view is more defined. This may represent superimposition shadow but further evaluation is recommended. Otherwise, no significant change. Overall Assessment: Incomplete: need additional imaging evaluation, BI-RAD 0 Management: Special View Mammogram of the right breast. Diagnostic Breast Ultrasound of the right breast. . [facility] will attempt to contact patient to return for supplemental views and ultrasound if indicated. Electronically signed and approved by: Madie Irby M.D. Radiologist
== END | disposition home or self-care (01) ==
LOC: RADMAMWWP 09:45
PROVIDERS: ATTEND Family Medicine
DX: Z12.31 Encounter for screening mammogram for malignant neoplasm of breast (principal); Z80.3 Family history of malignant neoplasm of breast
CPT/HCPCS: 77063; 77067

== ENCOUNTER → 2024-03-27 | Outpatient (CLI) | payer BC ==
--- NOTE | 2024-03-27 10:40 | MM ---
Reason for Exam: Additional evaluation requested from abnormal screening. Last screening mammogram was performed less than 1 month ago. Patient History: Menarche at age 14. First Full-Term at age 35. Late child-bearing (after 30). Premenopausal. Maternal grandmother had breast cancer, age 55. Maternal cousin had breast cancer, age 40. Maternal aunt had breast cancer, age 40. Maternal aunt had breast cancer. Risk Values: Susana 5 year model risk: 0.9%. NCI Lifetime model risk: 12.1%. Prior Study Comparison: 10/01/2020 Bilateral Screening Mammogram, [facility]. 10/01/2020 Left Diagnostic Ultrasound, [facility]. 01/15/2022 Bilateral Screening Mammogram, [facility]. 03/12/2023 Bilateral MG 3D screening mammo w/cad, [facility]. 03/21/2024 Bilateral MG 3D screening mammo w/cad, [facility]. Tissue Density: Right: There are scattered areas of fibroglandular density. Findings: Analyzed By CAD. Asymmetric density anterior depth 14 mm from the nipple slightly medial and inferiorly persists on spot compression imaging. Overall Assessment: Incomplete: need additional imaging evaluation, BI-RAD 0 Management: Diagnostic Breast Ultrasound of the right breast. Results were given to the patient verbally at the time of exam. Patient should continue monthly self-breast exams. A clinical breast exam by your physician is recommended on an annual basis. This exam should not preclude additional follow-up of suspicious palpable abnormalities. Note on Susana scores and lifetime risk: 1. A Susana score greater than 3% is considered moderate risk. If this is the case, consider specialist referral to assess eligibility for a risk reducing agent. 2. If overall lifetime risk for the development of breast cancer is 20% or higher, the patient may qualify for future screening with alternating mammogram and breast MRI. Electronically signed and approved by: Gonzalo Conklin DO
--- NOTE | 2024-03-27 11:11 | USB ---
Reason for Exam: Additional evaluation requested from abnormal screening. Patient History: Menarche at age 14. First Full-Term at age 35. Late child-bearing (after 30). Premenopausal. Maternal grandmother had breast cancer, age 55. Maternal cousin had breast cancer, age 40. Maternal aunt had breast cancer, age 40. Maternal aunt had breast cancer. Risk Values: Susana 5 year model risk: 0.9%. NCI Lifetime model risk: 12.1%. Technique: Method: Targeted. Prior Study Comparison: 01/15/2022 Bilateral Screening Mammogram, [facility]. 03/12/2023 Bilateral MG 3D screening mammo w/cad, [facility]. 03/21/2024 Bilateral MG 3D screening mammo w/cad, [facility]. Findings: The periareolar of the right breast, the axilla of the right breast and the retroareolar of the right breast were scanned. Technique utilized:US breast workup limited RT Image; Ultrasound imaging of: Area of concern, retroareolar region and axilla. No evidence for organizing fluid collection or mass. Dilated ducts correlate with mammographic findings. No intraductal masses definitively visualized. Overall Assessment: Benign, BI-RAD 2 Management: Screening Mammogram of both breasts in 1 year. A clinical breast exam by your physician is recommended on an annual basis and results should be correlated with mammographic findings. This exam should not preclude additional follow-up of suspicious palpable abnormalities. Results were given to the patient verbally at the time of exam. Electronically signed and approved by: Gonzalo Conklin DO
== END | disposition home or self-care (01) ==
LOC: RADMAMWWP 10:13
PROVIDERS: ATTEND Family Medicine
DX: R92.8 Other abnormal and inconclusive findings on diagnostic imaging of breast (principal); R92.321 Mammographic fibroglandular density, right breast; Z80.3 Family history of malignant neoplasm of breast
CPT/HCPCS: 77061; 77065

== ENCOUNTER → 2025-06-26 | Outpatient (CLI) | payer BC ==
--- NOTE | 2025-06-26 18:03 | MM ---
Reason for Exam: Screening (asymptomatic). Last mammogram was performed 1 year(s) and 3 month(s) ago. Patient History: Menarche at age 14. First Full-Term at age 35. Late child-bearing (after 30). Premenopausal. Maternal grandmother had breast cancer, age 55. Maternal cousin had breast cancer, age 40. Maternal aunt had breast cancer, age 40. Maternal aunt had breast cancer. Last menstrual period: 05/29/2025 Risk Values: Susana 5 year model risk: 1.0%. NCI Lifetime model risk: 11.9%. Prior Study Comparison: 03/12/2023 Bilateral MG 3D screening mammo w/cad, [facility]. 03/21/2024 Bilateral MG 3D screening mammo w/cad, [facility]. 03/27/2024 Right MG 3D work up w/cad RT, [facility]. Tissue Density: The breasts are heterogeneously dense, which may obscure small masses. Findings: Analyzed By CAD. There is no suspicious group of microcalcifications or new suspicious mass in either breast. Overall Assessment: Negative, BI-RAD 1 Management: Screening Mammogram of both breasts in 1 year. Patient should continue monthly self-breast exams. A clinical breast exam by your physician is recommended on an annual basis. This exam should not preclude additional follow-up of suspicious palpable abnormalities. Note on Susana scores and lifetime risk: 1. A Susana score greater than 3% is considered moderate risk. If this is the case, consider specialist referral to assess eligibility for a risk reducing agent. 2. If overall lifetime risk for the development of breast cancer is 20% or higher, the patient may qualify for future screening with alternating mammogram and breast MRI. [facility], , 06/26/2025 6:00 PM. Electronically signed and approved by: Madie Irby M.D. Radiologist
== END | disposition home or self-care (01) ==
LOC: RADMAMWWP 14:21
PROVIDERS: ATTEND Family Medicine
DX: Z12.31 Encounter for screening mammogram for malignant neoplasm of breast (principal); R92.333 Mammographic heterogeneous density, bilateral breasts; Z80.3 Family history of malignant neoplasm of breast
CPT/HCPCS: 77063; 77067